=== PATIENT | male | born 2000 | race Caucasian/White ===

== ENCOUNTER 2018-04-13 10:28 | Emergency (ER) | payer SELFPAY ==
[2018-04-13] MEDS ORDERED: IBUPROFEN 400 MG TAB ONE (11:21)
--- NOTE | 2018-04-13 11:33 | RAD REPORT ---
EXAM DESCRIPTION: RAD - Chest Pa And Lat (2 Views) - 04/13/2018 11:22 am CLINICAL HISTORY: CHEST PAIN Chest pain. COMPARISON: Chest Single View dated 10/11/2017; Chest Pa And Lat (2 Views) dated 05/18/2016 FINDINGS: The lungs are clear. The heart is normal in size. No displaced fractures. IMPRESSION: No acute or concerning finding suspected.
--- NOTE | 2018-04-13 12:13 | EDPHYS ---
Physician Documentation [facility] Name: Elijah Marshall Age: 17 yrs Sex: Male : 2000 Arrival Date: 04/13/2018 Time: 10:31 Bed 14 Private MD: None, None ED Physician Thien Eli HPI: 04/13 11:03 This 17 yrs old Male presents to ER via Ambulatory with complaints of Flank rn Pain. 11:03 The patient complains of pain in the right lateral anterior chest. The pain does not rn radiate. Onset: The symptoms/episode began/occurred at an unknown time. Modifying factors: The symptoms are alleviated by nothing. the symptoms are aggravated by palpation/percussion, deep breath. Associated signs and symptoms: Pertinent positives: cough. Severity of pain: At its worst the pain was mild in the emergency department the pain is unchanged. The patient has experienced a previous episode. Reports right flank/lateral chest pain, unknown duration, + mild cough, + smokes, reports similar presentation in past, was told had pneumonia. No sob. No abd pain.. Historical: - Allergies: 10:46 No Known Allergies; aj - Home Meds: 10:46 None [Active]; aj - PMHx: 10:46 None; aj - PSHx: 10:46 None; aj - Immunization history:: Adult Immunizations up to date. - Social history:: Smoking status: Patient uses tobacco products, smokes one pack cigarettes per day. - Ebola Screening: : Patient negative for fever greater than or equal to 101.5 degrees Fahrenheit, and additional compatible Ebola Virus Disease symptoms Patient denies exposure to infectious person Patient denies travel to an Ebola-affected area in the 21 days before illness onset No symptoms or risks identified at this time. - Family history:: not pertinent. - Hospitalizations: : No recent hospitalization is reported. ROS: 11:03 Constitutional: Negative for fever, chills, and weight loss, Eyes: Negative for injury, rn pain, redness, and discharge, Cardiovascular: Negative for palpitations, and edema, Respiratory: Negative for shortness of breath, wheezing Abdomen/GI: Negative for abdominal pain, nausea, vomiting, diarrhea, and constipation, MS/Extremity: Negative for injury and deformity, Skin: Negative for injury, rash, and discoloration, Neuro: Negative for headache, weakness, numbness, tingling, and seizure. Exam: 11:03 Constitutional: This is a well developed, well nourished patient who is awake, alert, rn and in no acute distress. Head/Face: Normocephalic, atraumatic. Chest/axilla: Normal chest wall appearance and motion. + mild tenderness right lateral chest wall, no lesions or sign of trauma, no crepitus Cardiovascular: Regular rate and rhythm with a normal S1 and S2. No gallops, murmurs, or rubs. Normal PMI, no JVD. No pulse deficits. Respiratory: Lungs have equal breath sounds bilaterally, clear to auscultation and percussion. No rales, rhonchi or wheezes noted. No increased work of breathing, no retractions or nasal flaring. Abdomen/GI: Soft, non-tender, with normal bowel sounds. No distension or tympany. No guarding or rebound. No evidence of tenderness throughout. MS/ Extremity: Pulses equal, no cyanosis. Neurovascular intact. Full, normal range of motion. Equal circumference. Neuro: Awake and alert, GCS 15, oriented to person, place, time, and situation. Cranial nerves II-XII grossly intact. Motor strength 5/5 in all extremities. Sensory grossly intact. Cerebellar exam normal. Normal gait. Vital Signs: 10:46 BP 144 / 82; Pulse 97; Resp 20; Temp 100.0; Pulse Ox 99% on R/A; Weight 77.11 kg; aj Height 5 ft. 10 in. (177.80 cm); 11:45 BP 136 / 76; Pulse 88; Resp 15; Pulse Ox 100% on R/A; hb 10:46 Body Mass Index 24.39 (77.11 kg, 177.80 cm) aj MDM: 10:56 Patient medically screened. rn 12:12 Differential diagnosis: pleurisy, pneumonia, chest wall pain. Data reviewed: vital rn signs, nurses notes, radiologic studies, plain films, and as a result, I will discharge patient. Counseling: I had a detailed discussion with the patient and/or guardian regarding: the historical points, exam findings, and any diagnostic results supporting the discharge/admit diagnosis, radiology results, the need for outpatient follow up, to return to the emergency department if symptoms worsen or persist or if there are any questions or concerns that arise at home. Special discussion: Based on the patient's history, exam, and Dx evaluation, there is no indication for emergent intervention or inpatient Tx. It is understood by the patient/guardian that if the Sx's persist or worsen they need to return immediately for re-evaluation. I discussed with the patient/guardian in detail that at this point there is no indication for admission to the hospital. It is understood, however, that if the symptoms persist or worsen the patient needs to return immediately for re-evaluation. 04/13 11:00 Order name: XRAY Chest Pa And Lat (2 Views); Complete Time: 11:39 rn Administered Medications: 11:19 Drug: Motrin 800 mg Route: PO; hb 12:15 Follow up: Response: No adverse reaction; Pain is decreased hb Disposition: 04/13/18 12:12 Discharged to Home. Impression: Pleurisy. - Condition is Stable. - Discharge Instructions: Pleurisy. - Medication Reconciliation Form, Thank You Letter, Antibiotic Education, Prescription Opioid Use, Work release form form. - Follow up: Private Physician; When: As needed; Reason: Recheck today's complaints, Re-evaluation by your physician. - Problem is new. - Symptoms have improved. Signatures: Dispatcher [employer] EDOlivia Reyes RN RN aj Nieto, Roman, MD MD rn Baxter, Heather, RN RN Corrections: (The following items were deleted from the chart) 12:42 12:12 04/13/2018 12:12 Discharged to Home. Impression: Pleurisy. Condition is Stable. hb Forms are Medication Reconciliation Form, Thank You Letter, Antibiotic Education, Prescription Opioid Use. Follow up: Private Physician; When: As needed; Reason: Recheck today's complaints, Re-evaluation by your physician. Problem is new. Symptoms have improved. rn
--- NOTE | 2018-04-13 12:13 | ER ---
Nurse's Notes [facility] Name: Elijah Marshall Age: 17 yrs Sex: Male : 2000 Arrival Date: 04/13/2018 Time: 10:31 Bed 14 Private MD: None, None Diagnosis: Pleurisy Presentation: 04/13 10:45 Presenting complaint: Patient states: Right side pain when taking a deep breath since aj last night. Denies SOB. Also reports burning with urination. Transition of care: patient was not received from another setting of care. Onset of symptoms was April 13, 2018. Risk Assessment: Do you want to hurt yourself or someone else? Patient reports no desire to harm self or others. Initial Sepsis Screen: Does the patient meet any 2 criteria? No. Patient's initial sepsis screen is negative. Does the patient have a suspected source of infection? No. Patient's initial sepsis screen is negative. Care prior to arrival: None. 10:45 Method Of Arrival: Ambulatory 10:45 Acuity: YANETH 3 aj Triage Assessment: 10:46 General: Appears in no apparent distress. comfortable, Behavior is calm, cooperative, aj appropriate for age. Pain:. Pain: Complains of pain in right lateral anterior chest. Neuro: Level of Consciousness is awake, alert, obeys commands, Oriented to person, place, time, situation, Appropriate for age. Respiratory: Reports pain with respiration Airway is patent Trachea midline Respiratory effort is even, unlabored, Respiratory pattern is regular, symmetrical. : Reports burning with urination. Derm: Skin is intact, is healthy with good turgor, Skin is pink, warm \T\ dry. normal. Historical: - Allergies: 10:46 No Known Allergies; aj - Home Meds: 10:46 None [Active]; aj - PMHx: 10:46 None; aj - PSHx: 10:46 None; aj - Immunization history:: Adult Immunizations up to date. - Social history:: Smoking status: Patient uses tobacco products, smokes one pack cigarettes per day. - Ebola Screening: : Patient negative for fever greater than or equal to 101.5 degrees Fahrenheit, and additional compatible Ebola Virus Disease symptoms Patient denies exposure to infectious person Patient denies travel to an Ebola-affected area in the 21 days before illness onset No symptoms or risks identified at this time. - Family history:: not pertinent. - Hospitalizations: : No recent hospitalization is reported. Screenin:00 Abuse screen: Denies threats or abuse. Denies injuries from another. Nutritional hb screening: No deficits noted. Tuberculosis screening: No symptoms or risk factors identified. Fall Risk None identified. Assessment: 11:00 General: Appears in no apparent distress. Behavior is calm, cooperative. Pain: Pain hb currently is 3 out of 10 on a pain scale. Neuro: Level of Consciousness is awake, alert, obeys commands, Oriented to person, place, time, situation. Cardiovascular: Capillary refill < 3 seconds Patient's skin is warm and dry. Respiratory: Reports pain with movement Airway is patent Trachea midline Respiratory effort is even, unlabored, Respiratory pattern is regular, symmetrical, Breath sounds are clear bilaterally. GI: No signs and/or symptoms were reported involving the gastrointestinal system. : No signs and/or symptoms were reported regarding the genitourinary system. EENT: No signs and/or symptoms were reported regarding the EENT system. Derm: Skin is intact, is healthy with good turgor. Musculoskeletal: No signs and/or symptoms reported regarding the musculoskeletal system. 12:00 Reassessment: Patient appears in no apparent distress at this time. Patient and/or hb family updated on plan of care and expected duration. Pain level reassessed. Patient is alert, oriented x 3, equal unlabored respirations, skin warm/dry/pink. Vital Signs: 10:46 BP 144 / 82; Pulse 97; Resp 20; Temp 100.0; Pulse Ox 99% on R/A; Weight 77.11 kg; aj Height 5 ft. 10 in. (177.80 cm); 11:45 BP 136 / 76; Pulse 88; Resp 15; Pulse Ox 100% on R/A; hb 10:46 Body Mass Index 24.39 (77.11 kg, 177.80 cm) aj ED Course: 10:31 Patient arrived in ED. mr 10:31 None, None is Private Physician. mr 10:46 Triage completed. aj 10:46 Arm band placed on left wrist. Patient placed in an exam room. aj 10:54 Anel Apple, RN is Primary Nurse. hb 10:55 Thien Eli MD is Attending Physician. rn 11:00 Patient has correct armband on for positive identification. Placed in gown. Bed in low hb position. Call light in reach. Side rails up X 1. 11:12 Patient moved to radiology via wheelchair. jb2 11:16 X-ray completed. Patient tolerated procedure well. jb2 11:16 XRAY Chest Pa And Lat (2 Views) In Process Unspecified. EDMS 11:19 Patient moved back from radiology. jb2 12:42 No provider procedures requiring assistance completed. Patient did not have IV access hb during this emergency room visit. Administered Medications: 11:19 Drug: Motrin 800 mg Route: PO; hb 12:15 Follow up: Response: No adverse reaction; Pain is decreased hb Outcome: 12:12 Discharge ordered by . rn 12:42 Discharged to home ambulatory, with family. hb 12:42 Condition: stable 12:42 Discharge instructions given to patient, Instructed on discharge instructions, follow up and referral plans. medication usage, Demonstrated understanding of instructions, follow-up care, medications. 12:42 Patient left the ED. hb Signatures: Dispatcher [employer] EDMA Olivia Gibson RN RN aj Rivera, Maria Carlito Amaralsse jb2 Thien Eli MD MD rn Baxter, Heather, RN RN hb
== END 2018-04-13 12:42 | disposition home or self-care (01) ==
LOC: ER 10:28
DX: R09.1 Pleurisy (principal); F17.210 Nicotine dependence, cigarettes, uncomplicated
CPT/HCPCS: 71046; 99283

== ENCOUNTER 2018-04-18 00:07 | Emergency (ER) | payer SELFPAY ==
--- NOTE | 2018-04-18 00:41 | EDPHYS ---
Physician Documentation [facility] Name: Elijah Marshall Age: 17 yrs Sex: Male : 2000 Arrival Date: 04/18/2018 Time: 00:13 Bed 7 Private MD: ED Physician Chandana Phipps HPI: 04/18 00:37 This 17 yrs old Male presents to ER via Ambulatory with complaints of left jr8 sided chest pain. 00:37 The patient or guardian reports chest pain that is located primarily in the left jr8 lateral anterior chest. The pain does not radiate. Associated signs and symptoms: The patient has no apparent associated signs or symptoms. The chest pain is described as sharp, stabbing. Duration: The patient or guardian reports multiple episodes, that are intermittent, that wax and wane. Modifying factors: The symptoms are alleviated by nothing. the symptoms are aggravated by movement, palpation of area. Severity of pain: At its worst the pain was mild in the emergency department the pain is unchanged. The patient has experienced a previous episode. The patient has been recently seen by a physician:. Similar symptoms about 4 days ago. Was on right side but now on left. Also complains of mid burning with initiation of urine . Historical: - Allergies: 00:24 No Known Allergies; ak1 - Home Meds: 00:24 None [Active]; ak1 - PMHx: 00:24 None; ak1 - PSHx: 00:24 None; ak1 - Immunization history:: Adult Immunizations unknown. - Social history:: Smoking status: Patient uses tobacco products, smokes one pack cigarettes per day. - Ebola Screening: : No symptoms or risks identified at this time. ROS: 00:37 Eyes: Negative for injury, pain, redness, and discharge, ENT: Negative for injury, jr8 pain, and discharge, Neck: Negative for injury, pain, and swelling, Respiratory: Negative for shortness of breath, cough, wheezing, and pleuritic chest pain, Abdomen/GI: Negative for abdominal pain, nausea, vomiting, diarrhea, and constipation, Back: Negative for injury and pain, MS/Extremity: Negative for injury and deformity, Skin: Negative for injury, rash, and discoloration, Neuro: Negative for headache, weakness, numbness, tingling, and seizure. 00:37 Cardiovascular: Positive for chest pain, with movement, Negative for edema, orthopnea, palpitations, paroxysmal nocturnal dyspnea. 00:37 : Positive for urinary symptoms, Negative for penile discharge, penile pain, testicular pain Exam: 00:37 Eyes: Pupils equal round and reactive to light, extra-ocular motions intact. Lids and jr8 lashes normal. Conjunctiva and sclera are non-icteric and not injected. Cornea within normal limits. Periorbital areas with no swelling, redness, or edema. ENT: Nares patent. No nasal discharge, no septal abnormalities noted. Tympanic membranes are normal and external auditory canals are clear. Oropharynx with no redness, swelling, or masses, exudates, or evidence of obstruction, uvula midline. Mucous membranes moist. Neck: Trachea midline, no thyromegaly or masses palpated, and no cervical lymphadenopathy. Supple, full range of motion without nuchal rigidity, or vertebral point tenderness. No Meningismus. Cardiovascular: Regular rate and rhythm with a normal S1 and S2. No gallops, murmurs, or rubs. Normal PMI, no JVD. No pulse deficits. Respiratory: Lungs have equal breath sounds bilaterally, clear to auscultation and percussion. No rales, rhonchi or wheezes noted. No increased work of breathing, no retractions or nasal flaring. Abdomen/GI: Soft, non-tender, with normal bowel sounds. No distension or tympany. No guarding or rebound. No evidence of tenderness throughout. Skin: Warm, dry with normal turgor. Normal color with no rashes, no lesions, and no evidence of cellulitis. MS/ Extremity: Pulses equal, no cyanosis. Neurovascular intact. Full, normal range of motion. Neuro: Awake and alert, GCS 15, oriented to person, place, time, and situation. Cranial nerves II-XII grossly intact. Motor strength 5/5 in all extremities. Sensory grossly intact. Cerebellar exam normal. Normal gait. 00:37 Chest/axilla: Inspection: normal, Palpation: tenderness, that is mild, of the left lateral anterior chest, that partially reproduces the patient's complaints. 00:37 Back: pain, that is moderate, of the left paraspinous muscle , ROM is normal, normal spinal alignment noted, Palpation of the left paraspinous region completely reporduce's pain felt in chest. Vital Signs: 00:24 BP 136 / 76; Pulse 84; Resp 16; Temp 97.7; Pulse Ox 100% on R/A; Weight 77.11 kg (R); ak1 Height 5 ft. 10 in. (177.80 cm) (R); Pain 7/10; 00:24 Body Mass Index 24.39 (77.11 kg, 177.80 cm) ak1 MDM: 00:34 Patient medically screened. jr8 00:37 Data reviewed: vital signs, nurses notes, old medical records, and as a result, I will jr8 discharge patient. Data interpreted: Pulse oximetry: on room air is 100 %. Interpretation: normal. Counseling: I had a detailed discussion with the patient and/or guardian regarding: the historical points, exam findings, and any diagnostic results supporting the discharge/admit diagnosis, the need for outpatient follow up, a family practitioner, to return to the emergency department if symptoms worsen or persist or if there are any questions or concerns that arise at home. 04/18 00:34 Order name: Urine Dipstick-Ancillary (obtain specimen); Complete Time: 00:38 jr8 Administered Medications: No medications were administered Disposition: 21:19 Co-signature as Attending Physician, Chandana Phipps MD Available for consultation at ps1 all times. Disposition: 04/18/18 00:40 Discharged to Home. Impression: Muscle spasm of back. - Condition is Stable. - Discharge Instructions: Back Pain, Adult, Muscle Cramps and Spasms, Back Exercises, [id number], Heat Therapy. - Prescriptions for Ibuprofen 800 mg Oral Tablet - take 1 tablet by ORAL route every 12 hours As needed take with food; 20 tablet. Cyclobenzaprine 10 mg Oral Tablet - take 1 tablet by ORAL route every 8 hours As needed; 30 tablet. - Work release form, Medication Reconciliation Form, Thank You Letter, Antibiotic Education, Prescription Opioid Use form. - Follow up: Private Physician; When: 5 - 6 days; Reason: Recheck today's complaints, Continuance of care, Re-evaluation by your physician. - Problem is new. - Symptoms have improved. Signatures: Sandy rPetty, RN RN lp1 Servando Carrasco PA PA jr8 Griselda José RN RN ak1 Chandana Phipps MD MD ps1 Corrections: (The following items were deleted from the chart) 00:47 00:40 04/18/2018 00:40 Discharged to Home. Impression: Muscle spasm of back. Condition lp1 is Stable. Forms are Medication Reconciliation Form, Thank You Letter, Antibiotic Education, Prescription Opioid Use. Follow up: Private Physician; When: 5 - 6 days; Reason: Recheck today's complaints, Continuance of care, Re-evaluation by your physician. Problem is new. Symptoms have improved. jr8
--- NOTE | 2018-04-18 00:41 | ER ---
Nurse's Notes [facility] Name: Elijah Marshall Age: 17 yrs Sex: Male : 2000 Arrival Date: 04/18/2018 Time: 00:13 Bed 7 Private MD: Diagnosis: Muscle spasm of back Presentation: 04/18 00:23 Presenting complaint: Patient states: left side pain since Monday. pt seen in ER Monday ak1 for same s/s. pt c/o burning with urination since monday. Transition of care: patient was not received from another setting of care. Onset of symptoms is unknown. Risk Assessment: Do you want to hurt yourself or someone else? Patient reports no desire to harm self or others. Initial Sepsis Screen: Does the patient meet any 2 criteria? No. Patient's initial sepsis screen is negative. Does the patient have a suspected source of infection? No. Patient's initial sepsis screen is negative. Care prior to arrival: None. 00:23 Method Of Arrival: Ambulatory ak1 00:23 Acuity: YANETH 4 ak1 Triage Assessment: 00:24 General: Appears in no apparent distress. Behavior is calm, cooperative. ak1 Historical: - Allergies: 00:24 No Known Allergies; ak1 - Home Meds: 00:24 None [Active]; ak1 - PMHx: 00:24 None; ak1 - PSHx: 00:24 None; ak1 - Immunization history:: Adult Immunizations unknown. - Social history:: Smoking status: Patient uses tobacco products, smokes one pack cigarettes per day. - Ebola Screening: : No symptoms or risks identified at this time. Screenin:25 Abuse screen: Denies threats or abuse. Denies injuries from another. Nutritional ak1 screening: No deficits noted. Tuberculosis screening: No symptoms or risk factors identified. Fall Risk None identified. Assessment: 00:32 General: Appears in no apparent distress. Behavior is calm, cooperative, appropriate lp1 for age. Pain: Complains of pain in back Pain currently is 5 out of 10 on a pain scale. Quality of pain is described as crampy. Neuro: Level of Consciousness is awake, alert, obeys commands. Cardiovascular: Patient's skin is warm and dry. Respiratory: Respiratory effort is even, unlabored. GI: No signs and/or symptoms were reported involving the gastrointestinal system. : Reports burning with urination. EENT: No signs and/or symptoms were reported regarding the EENT system. Derm: Skin is pink, warm \T\ dry. Musculoskeletal: Circulation, motion, and sensation intact. Vital Signs: 00:24 BP 136 / 76; Pulse 84; Resp 16; Temp 97.7; Pulse Ox 100% on R/A; Weight 77.11 kg (R); ak1 Height 5 ft. 10 in. (177.80 cm) (R); Pain 7/10; 00:24 Body Mass Index 24.39 (77.11 kg, 177.80 cm) ak1 ED Course: 00:13 Patient arrived in ED. es 00:18 Servando Carrasco PA is PHCP. jr8 00:18 Chandana Phipps MD is Attending Physician. jr8 00:22 Sandy Pretty, RN is Primary Nurse. lp1 00:24 Triage completed. ak1 00:24 Arm band placed on Patient placed in an exam room, on a stretcher, on pulse oximetry, ak1 Patient notified of wait time. 00:25 Patient has correct armband on for positive identification. Bed in low position. Call ak1 light in reach. Side rails up X 1. Pulse ox on. NIBP on. 00:33 No provider procedures requiring assistance completed. Patient did not have IV access lp1 during this emergency room visit. Administered Medications: No medications were administered Outcome: 00:40 Discharge ordered by . jr8 00:46 Discharged to home ambulatory, with significant other. lp1 00:46 Condition: good 00:46 Discharge instructions given to patient, Instructed on discharge instructions, follow up and referral plans. medication usage, Demonstrated understanding of instructions, follow-up care, medications, Prescriptions given X 2. 00:47 Patient left the ED. lp1 Signatures: Dariela Buckley es Sandy Pretty, JANE RN lp1 Servando Carrasco PA PA jrGriselda Hannon RN RN ak1
== END 2018-04-18 00:47 | disposition home or self-care (01) ==
LOC: ER 00:07
DX: M62.830 Muscle spasm of back (principal); F17.210 Nicotine dependence, cigarettes, uncomplicated
CPT/HCPCS: 99283

== ENCOUNTER 2019-06-08 04:27 | Emergency (ER) | payer BC, SELFPAY ==
--- NOTE | 2019-06-08 05:19 | ER ---
Nurse's Notes [facility] Name: Elijah Marshall Age: 19 yrs Sex: Male : 2000 Arrival Date: 06/08/2019 Time: 04:30 Bed 6 Private MD: Diagnosis: Unspecified sprain of right foot Presentation: 06/08 04:38 Presenting complaint: Patient states: R foot pain, states landing wrong sometime last lp1 week, pain improved but states tonight pain was worse; States compression with PATRICIO bandage helps; No swelling noted to right lateral foot. Transition of care: patient was not received from another setting of care. Onset of symptoms was June 08, 2019. Risk Assessment: Do you want to hurt yourself or someone else? Patient reports no desire to harm self or others. Initial Sepsis Screen: Does the patient meet any 2 criteria? No. Patient's initial sepsis screen is negative. Does the patient have a suspected source of infection? No. Patient's initial sepsis screen is negative. Care prior to arrival: None. 04:38 Method Of Arrival: Ambulatory lp1 04:38 Acuity: YANETH 4 lp1 Historical: - Allergies: 04:40 No Known Allergies; lp1 - Home Meds: 04:40 None [Active]; lp1 - PMHx: 04:40 None; lp1 - PSHx: 04:40 None; lp1 - Immunization history:: Adult Immunizations up to date. - Social history:: Smoking status: Patient uses tobacco products, smokes two packs cigarettes per day. - Ebola Screening: : No symptoms or risks identified at this time. - Family history:: not pertinent. - Hospitalizations: : No recent hospitalization is reported. Screenin:42 Abuse screen: Denies threats or abuse. Denies injuries from another. Nutritional lp1 screening: No deficits noted. Tuberculosis screening: No symptoms or risk factors identified. Fall Risk None identified. Assessment: 04:41 General: Appears in no apparent distress. Behavior is calm, cooperative, appropriate lp1 for age. Pain: Complains of pain in lateral side of right foot and lateral side of right heel Pain currently is 3 out of 10 on a pain scale. Quality of pain is described as aching. Neuro: No deficits noted. Cardiovascular: No deficits noted. Respiratory: No deficits noted. GI: No deficits noted. : No deficits noted. EENT: No deficits noted. Derm: Skin is pink, warm \T\ dry. Musculoskeletal: Range of motion: intact in all extremities. Vital Signs: 04:39 BP 152 / 89; Pulse 96; Resp 16; Temp 99(TE); Pulse Ox 100% on R/A; Weight 74.84 kg; lp1 Height 5 ft. 10 in. (177.80 cm); Pain 3/10; 04:39 Body Mass Index 23.67 (74.84 kg, 177.80 cm) lp1 ED Course: 04:30 Patient arrived in ED. ag3 04:33 Thien Eli MD is Attending Physician. rn 04:38 Sandy Pretty, JANE is Primary Nurse. lp1 04:39 Triage completed. lp1 04:40 Arm band placed on left wrist. lp1 04:42 Patient has correct armband on for positive identification. lp1 04:42 No provider procedures requiring assistance completed. Patient did not have IV access lp1 during this emergency room visit. 05:00 XRAY Foot RIGHT 3 View In Process Unspecified. EDMS Administered Medications: No medications were administered Outcome: 05:18 Discharge ordered by . rn 05:27 Discharged to home ambulatory. lp1 05:27 Condition: good 05:27 Discharge instructions given to patient, Instructed on discharge instructions, follow up and referral plans. Demonstrated understanding of instructions, follow-up care. 05:29 Patient left the ED. lp1 Signatures: Dispatcher [employer] EDMS Thien Eli MD MD rn Pena, Laura, RN RN lp1 Allie Jaeger ag3
--- NOTE | 2019-06-08 05:20 | EDPHYS ---
Physician Documentation [facility] Name: Elijah Marshall Age: 19 yrs Sex: Male : 2000 Arrival Date: 06/08/2019 Time: 04:30 Bed 6 Private MD: ED Physician Thien Eli HPI: 06/08 04:41 This 19 yrs old Male presents to ER via Ambulatory with complaints of RT FOOT rn PAIN. 04:41 The patient presents with pain, that is acute. The complaints affect the right foot. rn Onset: The symptoms/episode began/occurred 1 week(s) ago. Modifying factors: The symptoms are alleviated by compression. Severity of symptoms: At their worst the symptoms were mild, in the emergency department the symptoms are unchanged. The patient has not experienced similar symptoms in the past. The patient has not recently seen a physician. Reports jumped off of couch last week, had some pain, but had gotten better with rest and compression wrapping, tonight pain worsened. Came in for eval. Denies ankle pain, Points to right lateral foot. . Historical: - Allergies: 04:40 No Known Allergies; lp1 - Home Meds: 04:40 None [Active]; lp1 - PMHx: 04:40 None; lp1 - PSHx: 04:40 None; lp1 - Immunization history:: Adult Immunizations up to date. - Social history:: Smoking status: Patient uses tobacco products, smokes two packs cigarettes per day. - Ebola Screening: : No symptoms or risks identified at this time. - Family history:: not pertinent. - Hospitalizations: : No recent hospitalization is reported. ROS: 04:41 Constitutional: Negative for fever, chills, and weight loss, MS/Extremity: Negative for rn deformity Neuro: Negative for weakness, numbness, tingling Exam: 04:41 Constitutional: This is a well developed, well nourished patient who is awake, alert, rn and in no acute distress. MS/ Extremity: Pulses equal, no cyanosis. Mild tenderness just distal to tip of fibula and along 5th metatarsal Vital Signs: 04:39 BP 152 / 89; Pulse 96; Resp 16; Temp 99(TE); Pulse Ox 100% on R/A; Weight 74.84 kg; lp1 Height 5 ft. 10 in. (177.80 cm); Pain 12/16; 04:39 Body Mass Index 23.67 (74.84 kg, 177.80 cm) lp1 MDM: 04:33 Patient medically screened. rn 05:16 Differential diagnosis: fracture, sprain. Data reviewed: vital signs, nurses notes, rn radiologic studies, plain films, and as a result, I will discharge patient. Test interpretation: by ED physician or midlevel provider: plain radiologic studies, Xray right foot with fracture/dislocation. Counseling: I had a detailed discussion with the patient and/or guardian regarding: the historical points, exam findings, and any diagnostic results supporting the discharge/admit diagnosis, radiology results, the need for outpatient follow up, to return to the emergency department if symptoms worsen or persist or if there are any questions or concerns that arise at home. Special discussion: I discussed with the patient/guardian in detail that at this point there is no indication for admission to the hospital. It is understood, however, that if the symptoms persist or worsen the patient needs to return immediately for re-evaluation. 06/08 04:37 Order name: XRAY Foot RIGHT 3 View rn Administered Medications: No medications were administered Disposition: 06/08/19 05:18 Discharged to Home. Impression: Unspecified sprain of right foot. - Condition is Stable. - Discharge Instructions: Foot Sprain, Foot Pain. - Medication Reconciliation Form, Thank You Letter, Antibiotic Education, Prescription Opioid Use, Work release form form. - Follow up: Private Physician; When: As needed; Reason: Recheck today's complaints, Re-evaluation by your physician. - Problem is an ongoing problem. - Symptoms are unchanged. Signatures: Dispatcher [employer] EDSD Thien Eli MD MD rn Pena, Laura, RN RN lp1 Corrections: (The following items were deleted from the chart) 05:29 05:18 06/08/2019 05:18 Discharged to Home. Impression: Unspecified sprain of right lp1 foot. Condition is Stable. Forms are Medication Reconciliation Form, Thank You Letter, Antibiotic Education, Prescription Opioid Use. Follow up: Private Physician; When: As needed; Reason: Recheck today's complaints, Re-evaluation by your physician. Problem is an ongoing problem. Symptoms are unchanged. rn
--- NOTE | 2019-06-08 10:08 | RAD REPORT ---
EXAM DESCRIPTION: RAD - Foot Right 3 View - 06/08/2019 5:00 am CLINICAL HISTORY: Right foot pain status post injury FINDINGS: No fracture or dislocation is seen
== END 2019-06-08 05:29 | disposition home or self-care (01) ==
LOC: ER 04:27
DX: S93.601A Unspecified sprain of right foot, initial encounter (principal); F17.210 Nicotine dependence, cigarettes, uncomplicated; Y93.39 Activity, other involving climbing, rappelling and jumping off; Y93.9 Activity, unspecified; Y92.018 Other place in single-family (private) house as the place of occurrence of the external cause
CPT/HCPCS: 99283

== ENCOUNTER 2021-07-17 21:10 | Emergency (ER) | payer BC, SELFPAY ==
--- NOTE | 2021-07-17 22:04 | ER ---
Nurse's Notes [facility] Name: Elijah Marshall Age: 21 yrs Sex: Male : 2000 Arrival Date: 07/17/2021 Time: 21:13 Bed 11 Private MD: Diagnosis: Cellulitis of left axilla-left upper arm Presentation: 07/17 21:45 Chief complaint: Patient states: [place] bump under left under arm x 4 weeks, reports pain lp1 to site 4 days ago, has become red, itchy, painful to site. Coronavirus screen: At this time, the client does not indicate any symptoms associated with coronavirus-19. Ebola Screen: No symptoms or risks identified at this time. Initial Sepsis Screen: Does the patient meet any 2 criteria? No. Patient's initial sepsis screen is negative. Does the patient have a suspected source of infection? No. Patient's initial sepsis screen is negative. Risk Assessment: Do you want to hurt yourself or someone else? Patient reports no desire to harm self or others. Onset of symptoms was July 17, 2021. 21:45 Method Of Arrival: Ambulatory lp1 21:45 Acuity: YANETH 4 lp1 Triage Assessment: 22:28 General: Appears in no apparent distress. comfortable, Behavior is calm, cooperative, bc5 appropriate for age. Pain: Denies pain. Historical: - Allergies: 21:47 No Known Allergies; lp1 - Home Meds: 21:47 None [Active]; lp1 - PMHx: 21:47 None; lp1 - PSHx: 21:47 None; lp1 - Immunization history:: Adult Immunizations up to date. - Social history:: Smoking status: Reported history of juuling and/or vaping. Patient uses street drugs, marijuana. Screenin:28 Abuse screen: Denies threats or abuse. Denies injuries from another. Nutritional bc5 screening: No deficits noted. Tuberculosis screening: No symptoms or risk factors identified. Fall Risk None identified. Assessment: 22:29 Reassessment: Pt c/o bump to left armpit, denies pain, "my outlined the redness so bc5 I would know if it spreads but I decided to come here". Vital Signs: 21:45 BP 142 / 82; Pulse 87; Resp 16; Temp 98.2(TE); Pulse Ox 100% on R/A; Weight 81.65 kg lp1 (R); Height 5 ft. 10 in. (177.80 cm); Pain 6/10; 22:31 BP 137 / 83; Pulse 81; Resp 16; Temp 98.1(O); Pulse Ox 100% on R/A; Pain 0/10; bc5 21:45 Body Mass Index 25.83 (81.65 kg, 177.80 cm) lp1 ED Course: 21:13 Patient arrived in ED. wm 21:31 Tunde Robbins PA is PHCP. cp 21:31 Tunde Curran MD is Attending Physician. cp 21:42 Rosanna Curtis, RN is Primary Nurse. bc5 21:46 Triage completed. lp1 21:46 Arm band placed on. lp1 22:28 No provider procedures requiring assistance completed. Patient did not have IV access bc5 during this emergency room visit. 22:29 Patient has correct armband on for positive identification. Call light in reach. bc5 Administered Medications: 22:28 Drug: Bactrim (trimethoprim-sulfamethoxazole) (160 mg-800 mg (DS) 1 tablet Route: PO; bc5 22:28 Follow up: Response: Medication administered at discharge. bc5 Outcome: 22:03 Discharge ordered by . cp 22:29 Condition: stable bc5 22:32 Discharged to home ambulatory. bc5 22:32 Discharge instructions given to patient, Instructed on discharge instructions, follow up and referral plans. medication usage. 22:32 Patient left the ED. bc5 Signatures: Sandy Pretty RN RN lp1 Tunde Robbins PA PA cp Marsh, Wendy Rosanna Curtis, JANE RN 5
--- NOTE | 2021-07-17 22:04 | EDPHYS ---
Physician Documentation [facility] Name: Elijah Marshall Age: 21 yrs Sex: Male : 2000 Arrival Date: 07/17/2021 Time: 21:13 Bed 11 Private MD: ED Physician Tunde Curran HPI: 07/17 21:55 This 21 yrs old Male presents to ER via Ambulatory with complaints of Bump on cp arm. 21:55 The patient presents with cellulitis of the left upper arm axilla. cp 21:55 Description: erythematous. Onset: The symptoms/episode began/occurred 4 day(s) ago. cp Possible cause(s): unknown. Associated signs and symptoms: Pertinent negatives: discharge, drainage, fever. Severity of symptoms: in the emergency department the symptoms are unchanged, despite home interventions. Historical: - Allergies: 21:47 No Known Allergies; lp1 - Home Meds: 21:47 None [Active]; lp1 - PMHx: 21:47 None; lp1 - PSHx: 21:47 None; lp1 - Immunization history:: Adult Immunizations up to date. - Social history:: Smoking status: Reported history of juuling and/or vaping. Patient uses street drugs, marijuana. ROS: 22:00 Constitutional: Negative for body aches, chills, fever, poor PO intake. cp 22:00 Cardiovascular: Negative for chest pain. 22:00 Respiratory: Negative for cough, shortness of breath. 22:00 Skin: Positive for erythema, of the left upper arm axilla. 22:00 All other systems are negative. Exam: 22:01 Head/Face: Normocephalic, atraumatic. cp 22:01 Constitutional: The patient appears in no acute distress, alert, awake, non-toxic, well developed, well nourished. 22:01 Cardiovascular: Rate: normal. 22:01 Respiratory: the patient does not display signs of respiratory distress, Respirations: normal. 22:01 Skin: abscess, not appreciated, cellulitis, that is mild, well demarcated, on the left upper arm axilla. Vital Signs: 21:45 BP 142 / 82; Pulse 87; Resp 16; Temp 98.2(TE); Pulse Ox 100% on R/A; Weight 81.65 kg lp1 (R); Height 5 ft. 10 in. (177.80 cm); Pain 6/10; 22:31 BP 137 / 83; Pulse 81; Resp 16; Temp 98.1(O); Pulse Ox 100% on R/A; Pain 0/10; bc5 21:45 Body Mass Index 25.83 (81.65 kg, 177.80 cm) lp1 MDM: 21:33 Patient medically screened. cp 22:00 Differential diagnosis: abscess, cellulitis. cp 22:02 Data reviewed: vital signs, nurses notes, and as a result, I will discharge patient. cp 22:03 Counseling: I had a detailed discussion with the patient and/or guardian regarding: the cp historical points, exam findings, and any diagnostic results supporting the discharge/admit diagnosis, to return to the emergency department if symptoms worsen or persist or if there are any questions or concerns that arise at home. Administered Medications: 22:28 Drug: Bactrim (trimethoprim-sulfamethoxazole) (160 mg-800 mg (DS) 1 tablet Route: PO; [facility] 22:28 Follow up: Response: Medication administered at discharge. [facility] Disposition: 22:05 Chart complete. cp Disposition Summary: 07/17/21 22:03 Discharge Ordered Location: Home cp Problem: new cp Symptoms: are unchanged cp Condition: Stable cp Diagnosis - Cellulitis of left axilla - left upper arm cp Followup: cp - With: Private Physician - When: 48 Hours - Reason: Worsening of condition Discharge Instructions: - Discharge Summary Sheet cp - Cellulitis, Adult cp Forms: - Medication Reconciliation Form cp - Thank You Letter cp - Antibiotic Education cp - Prescription Opioid Use cp Prescriptions: - Bactrim DS 800-160 mg Oral Tablet - take 1 tablet by ORAL route every 12 hours for 10 days; 20 tablet; Refills: 0, cp Product Selection Permitted Addendum: 07/19/2021 07:00 Co-signature as Attending Physician, Tunde Curran MD I agree with the assessment and c pedro plan of care. Signatures: Tunde Curran MD MD cha Pena, Laura, RN RN lp1 Tunde Robbins PA PA cp Corado, Bella, RN RN bc5
[2021-07-17 22:37] VITALS: O2SAT 100
[2021-07-17 22:39] VITALS: BP 137/83; TEMP 98.1
[2021-07-17] MEDS ORDERED: SMZ./TMP. 800/160 MG TABLET ONE (22:45)
== END 2021-07-17 22:32 | disposition home or self-care (01) ==
LOC: ER 21:10
DX: L03.112 Cellulitis of left axilla (principal)
CPT/HCPCS: 99283